=== PATIENT | female | born 2000 | race Caucasian/White ===

== ENCOUNTER → 2021-04-07 | Outpatient (CLI) | payer MEDICAID ==
--- NOTE | 2021-04-07 16:52 | Diagnostic Imaging Report ---
INDICATION: Routine care. TECHNIQUE: Multiple Real-time grayscale images were obtained over the gravid uterus. COMPARISON: None. FINDINGS: There is a single live fetus in a cephalic presentation. The heart rate was recorded at 152 BPM. The placenta is lateral and to the left. The amniotic fluid volume is 10.8 cm. The cervical length is 4.7 cm. The kidneys, bladder, and stomach are unremarkable. The brain is unremarkable. There is a four-chamber heart. There is a three-vessel cord with normal insertion. The spine is unremarkable. There are some cystic structures in the abdomen in the region of the right upper quadrant. These may in part represent the gallbladder; however, other cystic structures adjacent to this are present, etiology indeterminate. Followup is recommended. Biometrical measurements are as follows: Biparietal 7.40 cm, age 29 weeks 5 days. Head circumference 27.04 cm, age 29 weeks 4 days. Abdominal circumference 23.90 cm, age 28 weeks 2 days. Femur length 5.40 cm, age 28 weeks 5 days. Sonographic estimate age: 29 weeks 1 days. Sonographic estimated date of delivery: 06/22/2021. Estimated Weight: 1246 gm (+/- 182 gm). LMP percentile: 41%. heart rate: 152 beats per minute. number: 1 of 1. IMPRESSION: Single live IUP of 29 weeks 1 day gestational age with an estimated date of confinement sonographically of 06/22/2021. The survey is unremarkable apart from questionable cystic structures in the abdomen in the right upper quadrant. Followup in the later third trimester is recommended. Dictated on workstation # [id number]
== END ==
LOC: RAD 10:15
PROVIDERS: ATTEND Obstetrics & Gynecology
DX: Z34.03 Encounter for supervision of normal first pregnancy, third trimester (principal); Z3A.29 29 weeks gestation of pregnancy
CPT/HCPCS: 76805

== ENCOUNTER 2021-05-03 12:47 | Outpatient (CLI) | payer MEDICAID ==
[2021-05-03 13:13] VITALS: BP 118/69
[2021-05-03 13:15] VITALS: BP 118/69
[2021-05-03 13:24] LABS: BILIRUBIN,URINE NEGATIVE (NEGATIVE); CLARITY,URINE CLEAR; COLOR,URINE ORANGE; GLUCOSE, URINE (UA) NEGATIVE (NEGATIVE); KETONES,URINE NEGATIVE (NEGATIVE); LEUKOCYTE ESTERASE ,URINE NEGATIVE (NEGATIVE); NITRITE,URINE NEGATIVE (NEGATIVE); PROTEIN,URINE NEGATIVE (NEGATIVE)
[2021-05-03 13:35] LABS: BACTERIA,URINE FEW /HPF; CALCIUM OXALATE CRYSTALS,UR RARE /LPF; RBC,URINE RARE /HPF
--- NOTE | 2021-05-03 14:42 | Diagnostic Imaging Report ---
PROCEDURE: US Renal Bilateral. TECHNIQUE: Multiple real-time grayscale images were obtained over the kidneys in various projections bilaterally. INDICATION: Cramping and abdominal pain. Right kidney measures 11.6 x 5.3 x 5.5 cm and left kidney measures 11.5 x 5.3 x 4.5 cm. Cortical thickness and echogenicity is within normal limits. Left kidney is without evidence of hydronephrosis. There is a small echogenic focus in the midportion of the right kidney suggestive of a small calculus. The right renal collecting system is slightly prominent and mild hydronephrosis is suspected. No other abnormalities are seen. IMPRESSION: Mild right-sided hydronephrosis and right renal calculus. Dictated by: Dictated on workstation # [id number]
--- NOTE | 2021-05-04 11:20 | Physician Query-Final Dx ---
Clinic Account Progress/Dx Physician Query: Please give diagnosis Please include # weeks gestation Date of Service May 03, 2021 at 12:47 ,MayMay 04, 2021 11:20
== END 2021-05-03 15:13 ==
LOC: WSo 12:47 → LDRP 12:48 → WSo 15:13
PROVIDERS: ATTEND Obstetrics & Gynecology
DX: O62.9 Abnormality of forces of labor, unspecified (principal); Z3A.32 32 weeks gestation of pregnancy
CPT/HCPCS: 76770; 81000; 87088; G0463; 99213

== ENCOUNTER 2021-06-09 20:12 | Inpatient (IN) | payer MEDICAID ==
[~2021-06-09] VITALS: Ht 157.5 cm; Wt 89.0 kg
[2021-06-09 20:51] VITALS: BP 117/80
[2021-06-09 21:00] VITALS: BP 117/80
[2021-06-09 21:07] LABS: BILIRUBIN,URINE NEGATIVE (NEGATIVE); CLARITY,URINE CLEAR; COLOR,URINE YELLOW; GLUCOSE, URINE (UA) NEGATIVE (NEGATIVE); KETONES,URINE NEGATIVE (NEGATIVE); LEUKOCYTE ESTERASE ,URINE NEGATIVE (NEGATIVE); NITRITE,URINE NEGATIVE (NEGATIVE); PH,URINE 5.5 (5-9); PROTEIN,URINE NEGATIVE (NEGATIVE)
[2021-06-09 21:33] LABS: BACTERIA,URINE FEW /HPF
[2021-06-09 21:35] LABS: AMORPHOUS SEDIMENT,UR RARE AMOR URATES /LPF
[2021-06-09] MEDS ORDERED: D5 LR IV SOLUTION 1,000 ML IV ONE (23:00)
[2021-06-09] MEDS ORDERED: ceFAZolin INJECTION 1,000 MG ONE (23:00)
[2021-06-09] MEDS ORDERED: NS (IVPB) 50 ML ONE (23:01)
[2021-06-09] MEDS: D5 LR IV SOLUTION 1,000 ML IV SCH (23:15)
[2021-06-09] MEDS ORDERED: ACETAMINOPHEN 500 MG TAB (TYLENOL) ONE (23:54)
[2021-06-10] VITALS (50 sets, daily range): BP systolic 91–127; BP diastolic 50–75
[2021-06-10] MEDS ORDERED: ceFAZolin INJECTION 1,000 MG VIAL IV ONE (01:15)
[2021-06-10] MEDS ORDERED: ACETAMINOPHEN 500 MG TAB (TYLENOL) PO ONE (01:15)
--- NOTE | 2021-06-10 08:33 | Physician Query-Final Dx ---
ARNALDO,06/10/21 0833: Clinic Account Progress/Dx Physician Query: Please give diagnosis Please include # weeks gestation Date of Service Jun 09, 2021 at 20:12 PRAVEENA OCAMPO DO 06/10/21 1802: Clinic Account Progress/Dx DIAGNOSIS: Diagnosis 37 week IUP Cramping ARNALDO,MayJun 10, 2021 08:33 PRAVEENA OCAMPO DO Jun 10, 2021 18:02
[2021-06-10] MEDS ORDERED: OXYTOCIN PRE-MIX DRIP 500 ML IV SCH ×2 (09:15→18:15)
[2021-06-10] MEDS ORDERED: D5 LR IV SOLUTION 1,000 ML IV SCH (09:15)
[2021-06-10] MEDS ORDERED: MINERAL OIL CONCENTRATE 99.9% 15 ML UDC TOP PRN (09:15)
[2021-06-10] MEDS ORDERED: fentaNYL 2 mcg/ml BUPIVA 0.125 100 ML ONE (09:19)
--- NOTE | 2021-06-10 09:26 | Diagnostic Imaging Report ---
INDICATION: Evaluate biophysical profile. Biophysical profile was performed. Fetus is cephalic. heart rate was recorded at 139 bpm. Amniotic fluid index is 4.1 cm. The biophysical profile score is 6 out of 8. Two-point reduction was given for lack of breathing movements visualized. IMPRESSION: Biophysical profile score 6 out of 8, as described. Dictated by: Dictated on workstation # [id number]
[2021-06-10 09:27] LABS: BASOPHILS % (AUTO) 0 % (0-10); HEMOGLOBIN 8.6 g/dL (11.5-16.0); MEAN CORPUSCULAR HEMOGLOBIN 23 pg (25-34)
[2021-06-10 09:28] LABS: EOSINOPHILS # (AUTO) 0.1 10^3/uL (0.0-0.3); EOSINOPHILS % (AUTO) 1 % (0-10); HEMATOCRIT 29 % (35-52); LYMPHOCYTES # (AUTO) 2.9 10^3/uL (1.0-4.0); LYMPHOCYTES % (AUTO) 31 % (12-44); MEAN CORPUSCULAR HGB CONC 30 g/dL (32-36); MEAN CORPUSCULAR VOLUME 75 fL (80-99); MEAN PLATELET VOLUME 11.5 fL (9.0-12.2); MONOCYTES # (AUTO) 0.9 10^3/uL (0.0-1.0); MONOCYTES % (AUTO) 9 % (0-12); NEUTROPHILS # (AUTO) 5.5 10^3/uL (1.8-7.8); NEUTROPHILS % (AUTO) 58 % (42-75); PLATELET COUNT 192 10^3/uL (130-400); WHITE BLOOD COUNT 9.4 10^3/uL (4.3-11.0)
[2021-06-10] MEDS: D5 LR IV SOLUTION 1,000 ML IV SCH (09:31)
[2021-06-10] MEDS ORDERED: fentaNYL INJ 100 MCG/2 ML AMP ONE (11:21)
[2021-06-10] MEDS ORDERED: BUPIVACAINE 0.25% 30 ML (SENSORCAINE) VIAL ONE (11:21)
[2021-06-10] MEDS ORDERED: NALOXONE 0.4 MG/ML 1 ML (NARCAN) VIAL IV PRN ×2 (11:30→18:15)
[2021-06-10] MEDS ORDERED: LACTATED RINGERS 1,000 ML IV ONE ×2 (11:30)
[2021-06-10] MEDS ORDERED: ONDANSETRON 4 MG/2 ML (SDV) Z0FRAN IV PRN (11:30)
[2021-06-10] MEDS ORDERED: EPIDURAL (fentaNYL 2 MCG/ML BUPIVA 0.125%)100 ML BAG EPI PRN (11:30)
[2021-06-10] MEDS ORDERED: fentaNYL INJ 100 MCG/2 ML AMP INJ ONE (11:30)
[2021-06-10] MEDS ORDERED: CATHETER FLUSH 10 ML SYR IV SCH ×2 (14:00→22:00)
[2021-06-10] MEDS ORDERED: LIDOCAINE/EPI 2% 1:200,00 (XYLOCAINE) 10 ML VIAL ONE (17:29)
--- NOTE | 2021-06-10 18:05 | History & Physical-OB ---
OB - Chief Complaint & HPI Date/Time Date of Admission: Date of Admission: Jun 10, 2021 at 08:52 Date seen by a Provider: Jun 10, 2021 Time Seen by a Provider: 08:15 Chief Complaint/History OB-Reason for Admission/Chief: Induction of Labor Hx : 4 Hx Para: 1 Expected Date of Delivery: Jun 27, 2021 Gestational Age in Weeks: 37 Gestational Age in Days: 4 Indication for induction: other (Oligohydramnios, heart rate decelerations) Other reason for admission: Patient kept overnight after presentation for cramping contractions. Was having variable decels, and BPP this am revealed oligohydramnios Admission Nurse Assessment Rev: Yes Allergies and Home Medications Allergies Coded Allergies: No Known Drug Allergies (Unverified , 05/03/21) Patient Home Medication List Home Medication List Reviewed: Yes No Active Prescriptions or Reported Meds OB - History Hx of Present Care: Yes Ultrasounds: Normal mid trimester US, Other (BPP 4/8 this AM) Obstetrical Complications: None Medical Complications: None Obstetrical History Hx : 4 Hx Para: 1 Hx Total # of Abortions (Spona: 0 Patient Past Medical History n/a Social History/Family History Alcohol Use: Denies Use Recreational Drug Use: No Immunizations Influenza Vaccine Up-to-Date: No; Not Current Hepatitis A: Yes Hepatitis B: Yes OB - Admission Exam Physical Exam Vitals: Vital Signs 06/10/21 06/10/21 14:40 15:39 Temp 36.4 Pulse 76 Resp 18 B/P (MAP) 108/63 (78) Pulse Ox 99 O2 Delivery Room Air HEENT: NCAT Heart: Rhythm Normal Lungs: Clear Abdomen: Gravid Extremities: Normal Reflexes: Normal Cervical Dilatation: 3cm Effacement: 75% Station: -1 Membranes: Intact Heart Rate: 130's Accelerations: Accelerations Present Decelerations: No Decelerations Short Term Variability: Present Tap And Die Maker Technician Variability: Average (6-25) Contractions on Admission: 6-10 Minutes Apart Intensity: Mild Labs Laboratory Tests Test 06/09/21 20:35 06/10/21 09:15 Range/Units Urine Color YELLOW Urine Clarity CLEAR Urine pH 5.5 5-9 Urine Specific [place] 1.020 1.016-1.022 Urine Protein NEGATIVE NEGATIVE Urine Glucose (UA) NEGATIVE NEGATIVE Urine Ketones NEGATIVE NEGATIVE Urine Nitrite NEGATIVE NEGATIVE Urine Bilirubin NEGATIVE NEGATIVE Urine Urobilinogen 1.0 < = 1.0 MG/DL Urine Leukocyte Esterase NEGATIVE NEGATIVE Urine RBC (Auto) NEGATIVE NEGATIVE Urine RBC NONE /HPF Urine WBC 2-5 /HPF Urine Squamous Epithelial Cells 2-5 /HPF Urine Crystals PRESENT H /LPF Urine Amorphous Sediment RARE ROSELIA URATES H /LPF Urine Bacteria FEW H /HPF Urine Casts NONE /LPF Urine Mucus NEGATIVE /LPF Urine Culture Indicated YES White Blood Count 9.4 4.3-11.0 10^3/uL Red Blood Count 3.79 L 3.80-5.11 10^6/uL Hemoglobin 8.6 L 11.5-16.0 g/dL Hematocrit 29 L 35-52 % Mean Corpuscular Volume 75 L 80-99 fL Mean Corpuscular Hemoglobin 23 L 25-34 pg Mean Corpuscular Hemoglobin Concent 30 L 32-36 g/dL Red Cell Distribution Width 17.2 H 10.0-14.5 % Platelet Count 192 130-400 10^3/uL Mean Platelet Volume 11.5 9.0-12.2 fL Immature Granulocyte % (Auto) 0 % Neutrophils (%) (Auto) 58 42-75 % Lymphocytes (%) (Auto) 31 12-44 % Monocytes (%) (Auto) 9 0-12 % Eosinophils (%) (Auto) 1 0-10 % Basophils (%) (Auto) 0 0-10 % Neutrophils # (Auto) 5.5 1.8-7.8 10^3/uL Lymphocytes # (Auto) 2.9 1.0-4.0 10^3/uL Monocytes # (Auto) 0.9 0.0-1.0 10^3/uL Eosinophils # (Auto) 0.1 0.0-0.3 10^3/uL Basophils # (Auto) 0.0 0.0-0.1 10^3/uL Immature Granulocyte # (Auto) 0.0 0.0-0.1 10^3/uL Percent Immature Platelet Fraction 12.8 H 0.0-7.6 % OB - Assessment/Plan/Diagnosis Assessment Assessment: induction of labor Admission Dx 20 yo @ 37 weeks Oligohydramnios heart rate decelerations GBS neg Admission Status: Inpatient Order (span 2 midnights) Reason for Inpatient Admission: IOL at 37 weeks Plan Plan: Induction Induction Method: AROM FENECH,PRAVEENA S DO Jun 10, 2021 18:05
--- NOTE | 2021-06-10 18:09 | OB Labor & Delivery Record ---
L&D History Date of Service Date of Service: Jun 10, 2021 History Expected Date of Delivery: Jun 27, 2021 Gestational Age in Weeks: 37 Hx : 4 Hx Para: 1 Complications Events: Oliohydramnios, Routine care Operative Indications (Cesarea: N/A-Vaginal Delivery Intrapartal Events: None L&D Stage1 Stage One Onset of Labor - Date: Jun 10, 2021 Monitors and Tracing Monitor Mode: External Heart Rate: 125 Monitor Decelerations: Variable Station: -3 Alf Variability: Average (6-10) Short Term Variability: Present Presentation: Vertex Vital Signs VS - Last 72 Hours, by Label 06/09/21 06/09/21 06/10/21 06/10/21 20:51 21:00 01:00 02:00 Temp 36.6 36.5 36.4 Pulse 105 96 93 81 Resp 18 18 B/P (MAP) 117/80 (92) 105/50 (68) Pulse Ox 99 100 100 100 O2 Delivery Room Air Room Air 06/10/21 06/10/21 06/10/21 06/10/21 03:00 04:00 08:15 09:30 Temp 36.4 36.4 Pulse 79 76 76 81 Resp 20 20 B/P (MAP) 113/69 (84) 120/75 (90) Pulse Ox 98 98 98 98 06/10/21 06/10/21 06/10/21 06/10/21 09:45 10:00 10:15 10:30 Pulse 93 86 83 83 Resp 20 20 20 20 B/P (MAP) 107/75 (86) 122/55 (77) 112/56 (74) 121/67 (85) Pulse Ox 98 06/10/21 06/10/21 06/10/21 06/10/21 10:45 11:00 11:15 11:30 Pulse 83 87 91 102 Resp 20 20 20 20 B/P (MAP) 117/56 (76) 107/53 (71) 100/64 (76) 119/70 (86) Pulse Ox 100 O2 Delivery Room Air 06/10/21 06/10/21 06/10/21 06/10/21 11:36 11:40 11:44 11:50 Pulse 97 90 82 101 Resp 20 20 20 20 B/P (MAP) 118/71 (87) 110/73 (85) 104/69 (81) 102/65 (77) Pulse Ox 100 100 99 O2 Delivery Room Air Room Air Room Air Room Air 06/10/21 06/10/21 06/10/21 06/10/21 11:53 11:57 12:00 12:05 Pulse 104 106 110 103 Resp 20 18 18 18 B/P (MAP) 108/65 (79) 105/62 (76) 91/54 (66) 98/62 (74) O2 Delivery Room Air Room Air Room Air Room Air 06/10/21 06/10/21 06/10/21 06/10/21 12:10 12:13 12:17 12:20 Temp 36.3 Pulse 86 84 109 75 Resp 18 18 18 18 B/P (MAP) 105/66 (79) 104/66 (79) 102/57 (72) 97/51 (66) O2 Delivery Room Air Room Air Room Air Room Air 06/10/21 06/10/21 06/10/21 06/10/21 12:40 12:55 13:10 13:25 Pulse 74 96 97 76 Resp 18 18 18 18 B/P (MAP) 108/63 (78) 97/53 (68) 96/56 (69) 103/56 (72) Pulse Ox 100 98 100 O2 Delivery Room Air Room Air Room Air Room Air 06/10/21 06/10/21 06/10/21 06/10/21 13:40 13:55 14:10 14:23 Pulse 100 69 78 89 Resp 18 18 18 18 B/P (MAP) 100/61 (74) 99/57 (71) 106/62 (77) 103/66 (78) Pulse Ox 100 100 100 100 O2 Delivery Room Air Room Air Room Air Room Air 06/10/21 06/10/21 06/10/21 06/10/21 14:40 14:54 14:55 15:09 Temp 36.4 Pulse 84 69 67 69 Resp 18 18 18 18 B/P (MAP) 105/67 (80) 105/60 (75) 105/60 (75) 101/61 (74) Pulse Ox 100 99 98 99 O2 Delivery Room Air Room Air Room Air 06/10/21 06/10/21 15:24 15:39 Pulse 73 76 Resp 18 18 B/P (MAP) 104/62 (76) 108/63 (78) Pulse Ox 99 99 O2 Delivery Room Air Room Air Rupture of Membranes Spontaneous Ruture of Membrane: No Amniotic Membrane Rupture Time: 1214 Amniotic Membrane Fluid Desc.: Clear Vaginal Bleeding Description: Normal Show Induction/Anesthesia Epidural Cath Placement - Time: 1140 Progress/Notes Patient started on Pitocin at admission she had AROM performed at noon, and progressed with epidural analgesia to complete and +2 station L&D Stage2 Stage Two Stage II Date: Jun 10, 2021 Monitors and Tracing Monitor Mode: External Heart Rate: 125 Monitor Accelerations: Uniform Monitor Decelerations: Variable Division Field Inspector Variability: Average (6-10) Short Term Variability: Present Position: Right Occiput Anterior Presentation: Vertex Cord Descript/Complications Cord Vessel Description: 3 Vessels Complications nuchal cord reduced x 1 Delivery Type Delivery Method: Spontaneous Vaginal Anterior Shoulder: Right Episiotomy/Perineal Laceration Laceraction(s)/Extensions: No Condition of Delivery 1 minute Comment: 8 5 minute Comment: 9 Notes Live male weight 7lbs 15oz Condition of Infant Condition of Infant: Living Exam: No Observed Abnormalities Resuscitation Resuscitation: N/A - Spontaneous Resp L&D Stage3 Stage Three Stage III Date: Jun 10, 2021 Pictocin Pitocin Administration mu/min: 12 Pitocin ml/hr: 12 Pitocin Administration Comment: PITOCIN INCREASED 30 mu wide open after delivery of placenta Placenta Delivery Placenta Delivery: Spontaneous Delivery Summary Summary Estimated blood loss (mL): 300 Attending at delivery: Praveena Ocampo DO Condition of Delivery Examined: Cervix Examined, Uterus Explored Post Hemorrhage: No Condition of Mother stable Condition of (s) stable PRAVEENA OCAMPO DO Jun 10, 2021 18:09
--- NOTE | 2021-06-10 18:10 | Discharge Inst-Women's Service ---
Discharge Inst-Women's Serv Depart Medication/Instructions New, Converted or Re-Newed RX: Transmitted to Pharmacy Final Diagnosis PPD 1 NVD Problems Reviewed?: Yes Consults/Follow Up Additional Follow Up: Yes Orders/Referrals Dr. Dior in 6 weeks Activity Activity: Activity as Tolerated Driving Instructions: No Driving for 1 Week NO SMOKING: NO SMOKING Nothing Inside Vagina: No Douching, No [place], No Tampons Diet Discharge Diet: No Restrictions Symptoms to Report to : Bleeding Excessive, Pain Increased, Fever Over 101 Degrees F, Vaginal Bleeding Increase, Questions/Concerns For Any Problems or Questions: Contact Your Physician Skin/Wound Care Infection Signs and Symptoms: Increased Redness, Foul Odor of Wound, Increased Drainage, Skin Itchy or Has a Rash, Increased Swelling, Temperature Above 101 F Operative Area Clean and Dry: Keep Incision Clean/Dry Stitches/Sujatha/Dermabond: Dermabond, Care of Stitches Bathing Instructions: PRAVEENA Alcala DO Jun 10, 2021 18:10
[2021-06-10] MEDS ORDERED: IBUP-844 PO (18:12)
[2021-06-10] MEDS ORDERED: DIBU30OI TOP (18:12)
[2021-06-10] MEDS ORDERED: BENZ78AE5 TP (18:12)
[2021-06-10] MEDS ORDERED: ACHD5005 PO (18:12)
[2021-06-10] MEDS ORDERED: DOCU100C37 PO (18:12)
[2021-06-10] MEDS ORDERED: TETANUS,DIPTH,PERTUSS P/F (BOOSTRIX) 0.5 ML VIAL IM ONE (18:15)
[2021-06-10] MEDS ORDERED: DIBUCAINE 1% OINTMENT 30 GM TUBE TOP PRN (18:15)
[2021-06-10] MEDS ORDERED: MEASLES,MUMPS,RUBELLA 1 EA INJ SQ ONE (18:15)
[2021-06-10] MEDS ORDERED: WITCH HAZEL(TUCKS) 40 EA JAR TOP PRN (18:15)
[2021-06-10] MEDS ORDERED: BENZOCAINE/MENTHOL (DERMOPLAST) 56 ML CAN TP PRN (18:15)
[2021-06-10] MEDS: IBUPROFEN 600 MG (MOTRIN) TAB PO SCH (18:31)
[2021-06-11 01:05] VITALS: BP 110/57
[2021-06-11] MEDS: IBUPROFEN 600 MG (MOTRIN) TAB PO SCH ×2 (01:06→06:03)
[2021-06-11 06:02] VITALS: BP 97/56
[2021-06-11 06:07] LABS: LYMPHOCYTES # (AUTO) 3.7 10^3/uL (1.0-4.0); MEAN CORPUSCULAR VOLUME 75 fL (80-99)
[2021-06-11 06:09] LABS: BASOPHILS % (AUTO) 0 % (0-10); EOSINOPHILS # (AUTO) 0.2 10^3/uL (0.0-0.3); EOSINOPHILS % (AUTO) 1 % (0-10); HEMATOCRIT 27 % (35-52); HEMOGLOBIN 8.1 g/dL (11.5-16.0); LYMPHOCYTES % (AUTO) 29 % (12-44); MEAN CORPUSCULAR HEMOGLOBIN 23 pg (25-34); MEAN CORPUSCULAR HGB CONC 31 g/dL (32-36); MONOCYTES # (AUTO) 1.1 10^3/uL (0.0-1.0); MONOCYTES % (AUTO) 8 % (0-12); NEUTROPHILS # (AUTO) 7.9 10^3/uL (1.8-7.8); NEUTROPHILS % (AUTO) 61 % (42-75); PLATELET COUNT 178 10^3/uL (130-400)
[2021-06-11] MEDS: HYDROcodone/APAP 5 MG/325 MG (LORTAB) TAB PO PRN ×3 (06:58→20:15)
[2021-06-11] MEDS ORDERED: PRENATAL VITAMIN 1 EA TAB PO SCH (07:00)
--- NOTE | 2021-06-11 08:12 | Postpartum Progress Note ---
Note Note Day # 1 Subjective: Patient is without complaints. Ambulating, voiding. Tolerating a regular diet without nausea or vomiting. Normal lochia. Pain is well controlled with oral pain medications. Objective: Physical Exam: General - Alert and oriented, no apparent distress Abdomen - Soft, appropriately tender to palpation, non-distended, fundus firm at umbilicus Extremities - no edema, negative Aashish's bilaterally Assessment: Post- day # 1, status post vaginal delivery. Recovering well, hemodynamically stable Acute blood loss anemia Plan: Routine care. Encourage breast feeding. Encourage ambulation. Ferrous sulfate supplementation. Plan for discharge this evening or tomorrow AM pending baby's DC Vitals - Labs Vital Signs - I&O Vital Signs Date Time Temp Pulse Resp B/P (MAP) Pulse Ox O2 Delivery O2 Flow Rate FiO2 06/11/21 06:02 36.4 67 18 97/56 (70) 98 Room Air 06/11/21 01:05 36.6 73 18 110/57 (74) 99 Room Air 06/10/21 18:54 85 18 124/51 (75) Room Air 06/10/21 18:39 36.1 96 18 121/66 (84) Room Air 06/10/21 18:23 36.0 100 18 103/75 (84) Room Air 06/10/21 18:08 100 18 103/54 (70) Room Air 06/10/21 18:02 36.4 104 18 106/53 (70) Room Air 06/10/21 17:54 94 18 117/56 (76) Room Air 06/10/21 17:41 100 127/65 (85) 06/10/21 17:33 35.9 06/10/21 17:19 87 18 108/64 (79) 100 Room Air 06/10/21 16:54 91 18 109/66 (80) 98 06/10/21 16:39 77 18 104/58 (73) 99 Room Air 06/10/21 16:23 70 18 102/61 (75) 98 06/10/21 16:10 80 108/59 (75) 99 Room Air 06/10/21 15:53 74 18 101/61 (74) 98 06/10/21 15:39 76 18 108/63 (78) 99 Room Air 06/10/21 15:24 73 18 104/62 (76) 99 Room Air 06/10/21 15:09 69 18 101/61 (74) 99 06/10/21 14:55 67 18 105/60 (75) 98 Room Air 06/10/21 14:54 69 18 105/60 (75) 99 Room Air 06/10/21 14:40 36.4 84 18 105/67 (80) 100 Room Air 06/10/21 14:23 89 18 103/66 (78) 100 Room Air 06/10/21 14:10 78 18 106/62 (77) 100 Room Air 06/10/21 13:55 69 18 99/57 (71) 100 Room Air 06/10/21 13:40 100 18 100/61 (74) 100 Room Air 06/10/21 13:25 76 18 103/56 (72) 100 Room Air 06/10/21 13:10 97 18 96/56 (69) 98 Room Air 06/10/21 12:55 96 18 97/53 (68) 100 Room Air 06/10/21 12:40 74 18 108/63 (78) Room Air 06/10/21 12:20 75 18 97/51 (66) Room Air 06/10/21 12:17 109 18 102/57 (72) Room Air 06/10/21 12:13 36.3 84 18 104/66 (79) Room Air 06/10/21 12:10 86 18 105/66 (79) Room Air 06/10/21 12:05 103 18 98/62 (74) Room Air 06/10/21 12:00 110 18 91/54 (66) Room Air 06/10/21 11:57 106 18 105/62 (76) Room Air 06/10/21 11:53 104 20 108/65 (79) Room Air 06/10/21 11:50 101 20 102/65 (77) Room Air 06/10/21 11:44 82 20 104/69 (81) 99 Room Air 06/10/21 11:40 90 20 110/73 (85) 100 Room Air 06/10/21 11:36 97 20 118/71 (87) 100 Room Air 06/10/21 11:30 102 20 119/70 (86) 100 Room Air 06/10/21 11:15 91 20 100/64 (76) 06/10/21 11:00 87 20 107/53 (71) 06/10/21 10:45 83 20 117/56 (76) 06/10/21 10:30 83 20 121/67 (85) 06/10/21 10:15 83 20 112/56 (74) 06/10/21 10:00 86 20 122/55 (77) 06/10/21 09:45 93 20 107/75 (86) 98 06/10/21 09:30 36.4 81 20 120/75 (90) 98 06/10/21 08:15 36.4 76 20 113/69 (84) 98 Labs Laboratory Tests 06/10/21 09:15: White Blood Count 9.4, Red Blood Count 3.79L, Hemoglobin 8.6L, Hematocrit 29L, Mean Corpuscular Volume 75L, Mean Corpuscular Hemoglobin 23L, Mean Corpuscular Hemoglobin Concent 30L, Red Cell Distribution Width 17.2H, Platelet Count 192, Mean Platelet Volume 11.5, Immature Granulocyte % (Auto) 0, Neutrophils (%) (Auto) 58, Lymphocytes (%) (Auto) 31, Monocytes (%) (Auto) 9, Eosinophils (%) (Auto) 1, Basophils (%) (Auto) 0, Neutrophils # (Auto) 5.5, Lymphocytes # (Auto) 2.9, Monocytes # (Auto) 0.9, Eosinophils # (Auto) 0.1, Basophils # (Auto) 0.0, Immature Granulocyte # (Auto) 0.0, Percent Immature Platelet Fraction 12.8H 06/11/21 05:36: White Blood Count 13.0H, Red Blood Count 3.54L, Hemoglobin 8.1L, Hematocrit 27L, Mean Corpuscular Volume 75L, Mean Corpuscular Hemoglobin 23L, Mean Corpuscular Hemoglobin Concent 31L, Red Cell Distribution Width 17.1H, Platelet Count 178, Mean Platelet Volume , Immature Granulocyte % (Auto) 1, Neutrophils (%) (Auto) 61, Lymphocytes (%) (Auto) 29, Monocytes (%) (Auto) 8, Eosinophils (%) (Auto) 1, Basophils (%) (Auto) 0, Neutrophils # (Auto) 7.9H, Lymphocytes # (Auto) 3.7, Monocytes # (Auto) 1.1H, Eosinophils # (Auto) 0.2, Basophils # (Auto) 0.0, Immature Granulocyte # (Auto) 0.1, Percent Immature Platelet Fraction 13.1H Microbiology 06/09/21 Urine Culture - Final, Complete NO GROWTH PARVEZ MORALES SKI TECHNICIAN Jun 11, 2021 08:12
[2021-06-11] MEDS ORDERED: OXYTOCIN PRE-MIX DRIP 500 ML IV SCH (08:15)
[2021-06-11] MEDS: DOCUSATE SODIUM 100 MG (COLACE) CAP PO SCH ×2 (10:28→20:15)
[2021-06-11 10:30] VITALS: BP 109/59
[2021-06-11] MEDS: IBUPROFEN 800 MG (MOTRIN) TAB PO SCH ×2 (12:30→18:27)
--- NOTE | 2021-06-11 14:49 | Anesthesia-Regional Post-Op ---
Regional Patient Condition Mental Status: Alert, Oriented x3 Circulation: Same as Pre-Op Headache: Absent Sensation: Full Recovery Motor Block: Absent Post Op Complications Complications None Follow Up Care/Instructions Patient Instructions None needed. Anesthesia/Patient Condition Patient is doing well, ambulating in the hallway. She is C/O of sore back, which I explained is not uncommon after the epidural and should resolve on its own. She also said that her posterior legs are "almost sore or heavy." I told her I didn't have a good explanation for that, as we don't usually get that as a complaint. She is ambulating in the hallway without difficulty, so I told her to call us if that doesn't resolve over the next week. She has stable vital signs, no apparent adverse anesthesia problems. VLADIMIR MEDINA DO Jun 11, 2021 14:49
[2021-06-11 15:40] VITALS: BP 121/62
[2021-06-11 20:14] VITALS: BP 115/83
== END 2021-06-11 20:40 | disposition home or self-care (01) | DRG 806 ==
LOC: WSo 20:12 → LDRP 20:12 → WSo 06-10 08:52 → LDRP 06-10 08:52
PROVIDERS: ADMIT Obstetrics & Gynecology; ATTEND Obstetrics & Gynecology
PROC: 10E0XZZ Delivery of Products of Conception, External Approach (ICD-10-PCS; principal; 2021-06-10)
PROC: 10907ZC Drainage of Amniotic Fluid, Therapeutic from Products of Conception, Via Natural or Artificial Opening (ICD-10-PCS; 2021-06-10)
PROC: 3E033VJ Introduction of Other Hormone into Peripheral Vein, Percutaneous Approach (ICD-10-PCS; 2021-06-10)
DX: O41.03X0 Oligohydramnios, third trimester, not applicable or unspecified (principal); D62 Acute posthemorrhagic anemia; Z37.0 Single live birth; O76 Abnormality in fetal heart rate and rhythm complicating labor and delivery; Z3A.37 37 weeks gestation of pregnancy; O90.81 Anemia of the puerperium
CPT/HCPCS: 36415; 76819; 81000; 85025; 86850; 86900; 86901; 87088; 99212

== ENCOUNTER → 2021-09-17 | Outpatient (CLI) | payer MEDICAID ==
[~2021-09-17] VITALS: Ht 158 cm; Wt 86.0 kg
[~2021-09-17] MED LIST: ACHD5005 PO; BENZ78AE5 TP; DIBU30OI TOP; DOCU100C37 PO; HYDR-700 PO; IBUP-844 PO
== END | disposition home or self-care (01) ==
LOC: PREOP 05:37
PROVIDERS: ATTEND Obstetrics & Gynecology
DX: Z01.818 Encounter for other preprocedural examination (principal)

== ENCOUNTER 2021-09-24 07:05 | Day surgery (SDC) | payer MEDICAID ==
[~2021-09-24] VITALS: Ht 157.5 cm; Wt 88.0 kg
[2021-09-24] VITALS (13 sets, daily range): BP systolic 105–134; BP diastolic 58–102
[2021-09-24] MEDS ORDERED: LIDOCAINE PF 2% 5 ML (XYLOCAINE) VIAL ONE (07:13)
[2021-09-24] MEDS ORDERED: MIDAZOLAM 2 MG/2 ML (VERSED) VIAL ONE (07:13)
[2021-09-24] MEDS ORDERED: ROCURONIUM 50 MG/5 ML (ZEMURON) VIAL IV ONE (07:13)
[2021-09-24] MEDS ORDERED: proPOfol 200 MG/20 ML (DIPRIVAN) VIAL IV ONE (07:13)
[2021-09-24] MEDS ORDERED: fentaNYL INJ 100 MCG/2 ML AMP ONE ×2 (07:13→10:04)
[2021-09-24] MEDS ORDERED: SEVOFLURANE (ULTANE) 15 ML INHAL SOLN ONE ×2 (07:13→09:31)
[2021-09-24] MEDS ORDERED: ONDANSETRON 4 MG/2 ML (SDV) Z0FRAN ONE (07:13)
[2021-09-24] MEDS: LACTATED RINGERS 1,000 ML IV PRN ×2 (07:20→10:14)
[2021-09-24] MEDS ORDERED: ceFAZolin INJECTION 1,000 MG ONE (07:29)
[2021-09-24] MEDS ORDERED: ceFAZolin INJECTION 1,000 MG VIAL IV ONE (07:30)
[2021-09-24] MEDS ORDERED: LIDOCAINE/EPI 1%-1:200,000 (XYLOCAINE) 30 ML VIAL ONE (07:35)
[2021-09-24 07:38] LABS: BASOPHILS # (AUTO) 0.1 10^3/uL (0.0-0.1); HEMOGLOBIN 11.3 g/dL (11.5-16.0); MEAN PLATELET VOLUME 13.2 fL (9.0-12.2)
[2021-09-24 07:40] LABS: BASOPHILS % (AUTO) 1 % (0-10); EOSINOPHILS # (AUTO) 0.3 10^3/uL (0.0-0.3); EOSINOPHILS % (AUTO) 3 % (0-10); HEMATOCRIT 36 % (35-52); LYMPHOCYTES # (AUTO) 3.6 10^3/uL (1.0-4.0); LYMPHOCYTES % (AUTO) 47 % (12-44); MEAN CORPUSCULAR HEMOGLOBIN 25 pg (25-34); MEAN CORPUSCULAR HGB CONC 31 g/dL (32-36); MEAN CORPUSCULAR VOLUME 80 fL (80-99); MONOCYTES # (AUTO) 0.6 10^3/uL (0.0-1.0); MONOCYTES % (AUTO) 8 % (0-12); NEUTROPHILS # (AUTO) 3.2 10^3/uL (1.8-7.8); NEUTROPHILS % (AUTO) 41 % (42-75); PLATELET COUNT 314 10^3/uL (130-400); WHITE BLOOD COUNT 7.7 10^3/uL (4.3-11.0)
[2021-09-24 07:44] LABS: SMEAR SCAN COMMENT YES
--- NOTE | 2021-09-24 08:24 | Progress Note-Post Operative ---
Post-Operative Progess Note Surgeon (s)/[employer] (s) Surgeon VIKTORIYA GEE MD [employer]: Sadia Tavares Pre-Operative Diagnosis Chronic pelvic pain/endometriosis/ovarian cyst/irregular bleeding Post-Operative Diagnosis Same with pathology pending Procedure & Operative Findings Date of Procedure 09/24/21 Procedure Performed/Findings Total laparoscopic hysterectomy with bilateral salpingectomies and left oophorectomy Anesthesia Type General Estimated Blood Loss Estimated blood loss (mL): min Specimens/Packing Specimens Removed Uterus fallopian tubes and left ovary VIKTORIYA GEE MD September 24, 2021 08:24
--- NOTE | 2021-09-24 08:24 | Progress Note-Pre Operative ---
Pre-Operative Progress Note H&P Reviewed The H&P was reviewed, patient examined and no changes noted. Date Seen by Provider: September 24, 2021 Time Seen by Provider: 08:23 Date H&P Reviewed: September 24, 2021 Time H&P Reviewed: 08:23 Pre-Operative Diagnosis: Chronic pelvic pain/endometriosis/ovarian cyst/irregular bleeding VIKTORIYA GEE MD September 24, 2021 08:23
[2021-09-24] MEDS ORDERED: OXYC1TAB87 PO (08:28)
[2021-09-24] MEDS ORDERED: IBUP-1780 PO (08:28)
[2021-09-24] MEDS ORDERED: DOCU-143 PO (08:28)
[2021-09-24] MEDS ORDERED: ONDANSETRON 4 MG/2 ML (SDV) Z0FRAN IVP PRN ×2 (08:30→09:45)
[2021-09-24] MEDS ORDERED: KETOROLAC 30 MG/ML VIAL IVP SCH ×2 (08:30→16:00)
[2021-09-24] MEDS ORDERED: D5 LR IV SOLUTION 1,000 ML IV SCH (08:30)
--- NOTE | 2021-09-24 08:30 | Discharge Inst-Surgical ---
Discharge Inst-Surgical Depart Medication/Instructions New, Converted or Re-Newed RX: Other Consults/Follow Up Patient Instructions: As directed Orders & Referrals Follow Up Appt: Return to clinic on Monday at 9:30 AM for staple removal Call to make follow up appt. for patient in 4 weeks. Activity: Rest for 24 hours, than as tolerated. Wound Care: May remove Band-Aid tomorrow. Replace as desired. Keep incisions clean and dry. Wash daily with soap and water. Diet: As tolerated- may shower or tub bathe as desired. No driving for 24 hours, no alcoholic beverages for 24 hours, and nothing per vagina (no tampons, douching, or intercourse) for 8 weeks. Patient to return to the clinic as soon as possible for: Temperature greater than 101F, Severe Pain, Foul discharge from incision or vagina, Excessive Bleeding (more than a period). Activity Activity as Tolerated: No Diet Discharge Diet: No Restrictions VIKTORIYA GEE MD September 24, 2021 08:30
[2021-09-24] MEDS ORDERED: DOCUSATE SODIUM 100 MG (COLACE) CAP PO SCH (09:00)
[2021-09-24] MEDS ORDERED: morphine INJ 10 MG/ML 1ML (SYR OR VIAL) IVP ONE (09:45)
[2021-09-24] MEDS ORDERED: MEPERIDINE (DEMEROL) INJ 50 MG/ML IVP ONE (09:45)
--- NOTE | 2021-09-24 09:46 | Anesthesia-General Post-Op ---
General Patient Condition Mental Status/LOC: Same as Preop Cardiovascular: Satisfactory Nausea/Vomiting: Absent Respiratory: Satisfactory Pain: Controlled Complications: Absent Post Op Complications Complications None Follow Up Care/Instructions Patient Instructions None needed. Anesthesia/Patient Condition Patient Condition Patient is doing well, no complaints, stable vital signs, no apparent adverse anesthesia problems. No complications reported per nursing. ÁNGEL FAGAN CRNA September 24, 2021 09:46
[2021-09-24] MEDS ORDERED: KETOROLAC 30 MG/ML VIAL ONE (10:12)
[2021-09-24] MEDS ORDERED: fentaNYL INJ 100 MCG/2 ML AMP IVP ONE (10:15)
[2021-09-24] MEDS: fentaNYL INJ 100 MCG/2 ML AMP IVP PRN ×4 (11:05→15:11)
[2021-09-24] MEDS: oxyCODONE/APAP 5/325MG (PERCOCET 5) TABLET PO PRN ×2 (11:54→18:07)
--- NOTE | 2021-09-24 15:16 | OPERATIVE REPORT ---
DATE OF SERVICE: 09/24/2021 PREOPERATIVE DIAGNOSES: Chronic pelvic pain, history of endometriosis, abnormal uterine bleeding and ovarian cyst. POSTOPERATIVE DIAGNOSES: Chronic pelvic pain, history of endometriosis, abnormal uterine bleeding and ovarian cyst. OPERATIVE PROCEDURE: Total laparoscopic hysterectomy with bilateral salpingectomy and left oophorectomy. OPERATIVE DESCRIPTION: With the patient in the supine position under satisfactory general anesthesia, she was repositioned in dorsal lithotomy position in the [facility] and prepped and draped in the usual fashion for abdominal and vaginal surgery using the da Kayode equipment. Weighted speculum placed in the posterior fornix of vagina, cervix exposed and grasped anteriorly with single tooth tenaculum. The uterus was sounded to 12 cm with uterine sound. The cervix was then serially dilated with Tono dilators to accommodate a Shikha II manipulator, which was placed using a 6 mm x 8 cm uterine probe and a 30 mm colpotomy ring. Sutures of #1 Vicryl placed at 3 and 9 o'clock position of the cervix to affix the uterus to the manipulator. The tenaculum and speculum were removed. Tellez catheter was placed in the urinary bladder. The patient was brought in low dorsal lithotomy position. A 12 mm incision was made 10 cm superior to the umbilicus. Veress needle was placed through that incision into the abdominal cavity and correct placement confirmed with water drop test. The abdomen was insufflated with 2.4 liters of carbon dioxide. The Veress needle was removed and a 12 mm Optiview laparoscopic port was placed. The abdominal wall was transilluminated and 8 mm ports were placed in the right and left sides 3 cm superior to the umbilicus and 8 cm lateral to the umbilicus. All three port sites were infiltrated with 1% lidocaine with epinephrine prior to incision. The da Kayode column was advanced on the patient, docked the operative instrument, placed in right and left lateral ports and I retired to the da Kayode console. At the console using the vessel sealer on the right and bipolar fenestrated grasper on the left, the pelvis was examined. The right ovary was normal-appearing, left ovary was extensively involved with endometriosis and was somewhat adherent to the left pelvic sidewall due to the endometriosis and the scarring ____ there too. The uterus was examined, it was little bit large and bulky and mottled in appearance consistent with adenomyosis. The laparoscope was rotated. The appendix was normal vermiform appendix. It was somewhat retrocecal and up out of the pelvis. Attention was turned back to the pelvis. Decision was made to conserve the right ovary as it looked to be very minimally if any involved in endometriosis. The right fallopian tube was grasped, elevated and the mesosalpinx was clamped, cauterized and divided with the vessel sealer across to the uteroovarian pedicle, which was also treated in the same manner and then dissection was carried down across the round ligament down across the broad ligament onto the cardinal ligament. Same procedure performed on the left except that the dissection was carried over across the mesovarium allowing for removal of the left tube and ovary and eventually with the right tube and the uterus. Right ovary was conserved. The anterior lower uterine segment peritoneum was divided with electrocautery using the EndoShears. The bladder was ____ dissected down off the lower uterine segment and then colpotomy incision was started at 12 o'clock position onto the colpotomy ring. That incision was continued circumferentially until the entire colpotomy ring was exposed and then the uterus with the both tubes attached, the left ovary still attached was extracted through the vagina. Vaginal cuff was closed with a single suture V-Loc barbed suture in the usual manner starting from the right angle and continuing across to the left angle. The last couple of stitches were used to reperitonealize the vaginal cuff. Hemostasis was complete. Both ureters were seemed to peristalsis before, during and now after completion of the procedure. The sponge and needle counts correct, hemostasis assured and no remaining abnormal pathology. The procedure was terminated. The operative instruments were removed under direct vision as were the ports. The abdomen was evacuated of insufflating gas and then the skin incisions were closed with colton after closing the fascia at the supraumbilical incision with [id number] suture of 2-0 Vicryl. Speculum was replaced in the vagina. The vaginal cuff was examined. It was completely intact and hemostatic. Tellez catheter was left to dependent drainage. Sponge and needle counts were correct. Estimated blood loss was minimal. The patient tolerated the procedure well and was uneventfully awakened from her general anesthesia and transferred to the recovery room in stable condition. Job ID: [id number] DocumentID: [id number] Dictated Date: 09/24/2021 09:36:32 Associate Professor Of Geology Date: 09/24/2021 14:32:07 Dictated By: VIKTORIYA GEE MD
[2021-09-25] MEDS ORDERED: ONDANSETRON 4 MG/2 ML (SDV) Z0FRAN IVP PRN (08:30)
[2021-09-25] MEDS ORDERED: DOCUSATE SODIUM 100 MG (COLACE) CAP PO SCH (09:00)
[2021-09-25] MEDS ORDERED: IBUPROFEN 800 MG (MOTRIN) TAB PO SCH (10:00)
== END 2021-09-24 18:20 | disposition home or self-care (01) ==
LOC: SDC 07:05 → WS 10:12 → SDC 18:20
PROVIDERS: ATTEND Obstetrics & Gynecology
DX: N72 Inflammatory disease of cervix uteri (principal); N93.9 Abnormal uterine and vaginal bleeding, unspecified; N83.8 Other noninflammatory disorders of ovary, fallopian tube and broad ligament; N80.3 Endometriosis of pelvic peritoneum; N83.202 Unspecified ovarian cyst, left side; N83.292 Other ovarian cyst, left side; N92.6 Irregular menstruation, unspecified; G89.29 Other chronic pain
CPT/HCPCS: 36415; 84703; 85025; 87081; 88307